=== PATIENT | female | born 1990 | race Caucasian/White ===

== ENCOUNTER 2017-02-11 15:18 | Emergency (ER) | payer SELFPAY ==
[2017-02-11 16:13] VITALS: BP 143/92
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
--- NOTE | 2017-02-11 16:56 | RAD ---
Indication: Right rib injury. 3 views of the right ribs and dual energy PA view of the chest demonstrates no fracture of the RIBS. No pneumothorax is noted. No mediastinal shift is noted. Heart is of normal size and configuration. IMPRESSION: No fracture of the ribs is noted. No pneumothorax is noted.
== END 2017-02-11 17:09 | disposition home or self-care (01) ==
LOC: UCEAST 15:18
DX: S20.211A Contusion of right front wall of thorax, initial encounter (principal); W03.XXXA Other fall on same level due to collision with another person, initial encounter; Y93.63 Activity, rugby; Y92.328 Other athletic field as the place of occurrence of the external cause
CPT/HCPCS: 99212; G0463